=== PATIENT | male | born 1970 | race Caucasian/White ===

== ENCOUNTER 2018-01-27 16:43 | Outpatient (CLI) | payer OTHER ==
[2013-02-20 20:21] VITALS: BP 149/98
[2018-01-27 17:03] LABS: CANNABINOIDS NON NEGATIVE ng/mL (< 50); METHYLENEDIOXYMETHAMPHETAMINE NEGATIVE ng/mL (<500)
== END 2018-01-27 16:48 | disposition home or self-care (01) ==
LOC: LABRHC 16:43
PROVIDERS: ATTEND Family Medicine
DX: R82.5 Elevated urine levels of drugs, medicaments and biological substances (principal)
CPT/HCPCS: 80377; G0481

== ENCOUNTER 2018-05-17 09:34 | Emergency (ER) | payer OTHER ==
[2018-05-17 09:51] VITALS: BP 119/85
--- NOTE | 2018-05-17 10:25 | ED Physician Documentation ---
Wound Recheck - HISTORIAN Historian: patient - HPI Stated Complaint: wound check Chief Complaint: Wound Recheck Additional Information: Patient is a 47-year-old male that presents to the ER needing a dressing change to the right forearm x 2 sites. He states that he noticed the sores around 05/11/18 due to IV drug use- he was seen and treated at the [facility] on 05/14/18 for abscesses x 2 to the RFA- he states that they opened them up and drained them and did a wet to dry dressing. Ultrasounds were completed on both arms. He was started on Bactrim. He was suppose to change dressings daily but his stated that she could not do it. We will change dressings today- he has appointment with PCP in the morning at 11 a.m. Date Treated in ER: 05/14/18 ([facility]) Previous ED Treatment: I & D of abscess (IN THE ER AT [facility]) Antibiotics Given: prescription (BACTRIM DS) Symptoms Since Procedure: other (HAS NOT CHANGED DRESSING SINCE THEY WERE PLACED ON THE ) Further Comments: no - ROS NEURO: denies: headache, fainting CONST: no problems EYES/ENT: none CVS/RESP: none MS/SKIN/LYMPH: other (SWELLING OF RIGHT FOREARM). denies: leg swelling, ankle swelling GI/: none - PAST HX Past History: other (HTN, HLD, DEPRESSION, ANXIETY, AGGRESSION) Immunizations: tetanus, UTD Allergies/Adverse Reactions: Allergies Allergy/AdvReac Type Severity Reaction Status Date / Time No Known Drug Allergies Allergy Verified 05/17/18 09:52 Home Medications: Ambulatory Orders Medication Instructions Recorded Fluoxetine HCl 60 mg PO DAILY u2 08/25/12 Divalproex Sodium [Depakote] 1,000 mg PO AM 05/17/18 Divalproex Sodium [Depakote] 1,500 mg PO PM 05/17/18 Lisinopril [Zestril] 20 mg PO DAILY 05/17/18 Propranolol HCl [Inderal] 20 mg PO QD 05/17/18 Quetiapine Fumarate [Seroquel] 100 mg PO PM 05/17/18 - SOCIAL HX Smoking History: greater than 1 pack/day Alcohol Use: occasionally 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), other (HEROIN- LAST USED 3 DAYS AGO) - FAMILY HX Family History: none - VITAL SIGNS Vital Signs: Vital Signs Temp Pulse Resp BP Pulse Ox 97.3 F L 93 H 19 119/85 99 05/17/18 09:37 05/17/18 09:37 05/17/18 09:37 05/17/18 09:37 05/17/18 09:37 Physical Exam - Physical Exam General Appearance: WD/WN, no apparent distress Eye Exam: bilateral eye: normal inspection Ears, Nose, Throat: normal ENT inspection, normal pharynx Neck Exam: non-tender, full range of motion Respiratory: lungs clear, normal breath sounds Cardiovascular/Chest: normal peripheral pulses (right brachial noted), regular rate, rhythm Gastrointestinal/Abdominal: normal bowel sounds, non tender, soft Extremity: normal range of motion, slow capillary refill (of right arm), swelling (RFA- pt states is improving) Neurologic: no motor/sensory deficits, alert, oriented x 3 Skin Exam: warm/dry (2- 1 cm holes to the Right Forearm- forearm is warm, firm, edema) Procedures Progress: RN removed packing x 2 sites, cleansed and repacked with wet to dry dressings Discharge Clincal Impression: Encounter for wound re-check, IV drug user Referrals: Gilson Betancourt MD [Primary Care Provider] - 2 Days Additional Instructions: Keep follow up appointment tomorrow with [place] at 10 a.m. Finish antibiotic regimen NO IV DRUGS IN AFFECTED ARM Condition: Good Disposition: 01 HOME, SELF-CARE Decision to Admit: NO Decision Time: 10:15
== END 2018-05-17 10:18 | disposition home or self-care (01) ==
LOC: ED 09:34
DX: Z48.00 Encounter for change or removal of nonsurgical wound dressing (principal)
CPT/HCPCS: 99281